=== PATIENT | male | born 1990 | race Two or more races ===

== ENCOUNTER 2020-10-24 11:11 | Emergency (ER) | payer OTHER, MEDICAID ==
[~2020-10-24] VITALS: Ht 170.2 cm; Wt 60.0 kg
[2020-10-24] MEDS ORDERED: TOPUD MT (11:50)
[2020-10-24] MEDS ORDERED: LORATADINE 10MG TABLET PO SCH (11:57)
[2020-10-24] MEDS ORDERED: ACETAMINOPHEN 325MG TABLET PO ONE (12:00)
[2020-10-24] MEDS ORDERED: IBUPROFEN 400MG TABLET PO ONE (12:00)
[2020-10-24 12:46] VITALS: BP 140/78
== END 2020-10-24 12:45 | disposition home or self-care (01) ==
LOC: EDSEX 11:11 → ER 11:11
DX: R21 Rash and other nonspecific skin eruption (principal)
CPT/HCPCS: 99284

== ENCOUNTER 2022-03-08 14:39 | Emergency (ER) | payer MEDICAID, OTHER ==
[~2022-03-08] VITALS: Ht 170.2 cm; Wt 51.0 kg
[~2022-03-08 14:39] MED LIST: TOPUD MT
[2022-03-08 14:43] VITALS: BP 101/74
[2022-03-08 15:50] LABS: BASOPHILS % 0.4 % (0.0-2.0); EOSINOPHILS % 0.1 % (0.0-5.0); HEMATOCRIT. 38.5 % (36.0-48.0); HEMOGLOBIN. 13.4 g/dL (12.0-16.0); LYMPHOCYTES % 12.1 % (20.0-50.0); MEAN CORPUSCULAR HEMOGLOBIN 32.7 pg (28.0-32.0); MEAN PLATELET VOLUME 7.4 fl (7.4-10.4); MONOCYTES % 5.3 % (2.0-8.0); NEUTROPHILS % 82.1 % (40.0-76.0); PLATELET 336 x1000/uL (130-400); RED BLOOD CELL COUNT 4.09 mill/uL (4.2-5.4); RED CELL DISTRIBUTION WIDTH 12.7 % (11.6-14.6)
[2022-03-08 15:55] LABS: CHLORIDE 104 mEq/L (98-107)
[2022-03-08 15:56] LABS: CLARITY URINE CLEAR (CLEAR); COLOR URINE YELLOW (YELLOW); KETONES URINE 3+ (NEGATIVE); LEUKOCYTE ESTERASE URINE TRACE (NEGATIVE); NITRITE URINE NEGATIVE (NEGATIVE); OCCULT BLOOD URINE NEGATIVE (NEGATIVE); PH URINE 8.5 (4.5-8.0); PROTEIN URINE 1+ (NEGATIVE); SPECIFIC GRAVITY URINE 1.024 (1.005-1.030)
[2022-03-08 16:04] LABS: PARTIAL THROMBOPLASTIN TIME 27.7 sec (23.4-31.0); PROTHROMBIN TIME 11.2 sec (9.6-11.0)
[2022-03-08] MEDS ORDERED: DICYCLOMINE 10 MG/5 ML ORAL SYR PO STA (16:42)
[2022-03-08] MEDS ORDERED: METOCLOPRAMIDE HCL 10MG/2ML VIAL IV STA (16:42)
[2022-03-08] MEDS ORDERED: VISCOUS LIDOCAINE 2% 15 ML UDC PO STA (16:42)
[2022-03-08] MEDS ORDERED: FAMOTIDINE 20MG/2ML VIAL IV STA (16:42)
[2022-03-08] MEDS ORDERED: MAGNESIUM/ALUMINUM HYDROXIDE/SIMETHICONE 30ML UDC PO STA (16:42)
[2022-03-08] MEDS ORDERED: PYRIDOXINE HCL 50MG TABLET PO ONE (16:45)
[2022-03-08] MEDS ORDERED: ONDA4TAB11 PO (19:00)
[2022-03-08] MEDS ORDERED: PREN-135 MT (19:04)
== END 2022-03-08 19:27 | disposition home or self-care (01) ==
LOC: ER 14:39
DX: O21.0 Mild hyperemesis gravidarum (principal); Z3A.01 Less than 8 weeks gestation of pregnancy
CPT/HCPCS: 36415; 76801; 76817; 80053; 81003; 81025; 82010; 83690; 84702; 85025; 85610; 85730; 86850; 86900; 86901; 96374; 96375; 99284; J2765; J3490; 76815